=== PATIENT | female | born 1975 | race Caucasian/White ===

== ENCOUNTER 2022-09-03 15:59 | Inpatient (IN) | payer MEDICAID ==
[~2022-09-03] VITALS: Ht 162.6 cm; Wt 131.5 kg
[2022-09-03 16:39] LABS: HEMATOCRIT 33.7 % (31.2-41.9); MEAN CORPUSCULAR HEMOGLOBIN 28.1 uug (24.7-32.8); MEAN CORPUSCULAR VOLUME 89.7 fL (75.5-95.3); PLATELET COUNT (AUTO) 144 K/uL (179-408)
[2022-09-03] MEDS ORDERED: AMIN30LI2 PO (16:40)
[2022-09-03] MEDS ORDERED: ACET-2154 PO (16:40)
[2022-09-03] MEDS ORDERED: PREG100C PO (16:40)
[2022-09-03] MEDS ORDERED: BUDE0.253 IH (16:40)
[2022-09-03] MEDS ORDERED: PANT40TA2 PO (16:40)
[2022-09-03] MEDS ORDERED: INSU100I26 SQ (16:40)
[2022-09-03] MEDS ORDERED: BUSP5TAB3 PO (16:40)
[2022-09-03] MEDS ORDERED: ASCO500C6 PO (16:40)
[2022-09-03] MEDS ORDERED: GLUC1KIT IM (16:40)
[2022-09-03] MEDS ORDERED: NALO4SPR BNOSTRILS (16:40)
[2022-09-03] MEDS ORDERED: OXYC15TA2 PO (16:40)
[2022-09-03] MEDS ORDERED: ZINC220C6 PO (16:40)
[2022-09-03] MEDS ORDERED: ARGI1POW13 PO (16:40)
[2022-09-03] MEDS ORDERED: IPRA0.2S48 NEB (16:40)
[2022-09-03] MEDS ORDERED: OXYC10TA49 PO (16:40)
[2022-09-03] MEDS ORDERED: INSU100I47 SQ (16:40)
[2022-09-03] MEDS ORDERED: FERR-56 PO (16:40)
[2022-09-03] MEDS ORDERED: ENOX40DI SQ (16:40)
[2022-09-03] MEDS ORDERED: ONDA4TAB5 PO (16:40)
[2022-09-03] MEDS ORDERED: ESCI20TA PO (16:40)
[2022-09-03] MEDS ORDERED: MULT-213 PO (16:40)
[2022-09-03] MEDS ORDERED: ASPI81TA31 PO (16:40)
[2022-09-03] MEDS ORDERED: FURO-151 PO (16:40)
[2022-09-03] MEDS ORDERED: LACT1CAP61 PO (16:40)
[2022-09-03] MEDS ORDERED: ATOR10TA PO (16:40)
[2022-09-03] MEDS ORDERED: ALLO100T PO (16:40)
[2022-09-03] MEDS ORDERED: MELA3CAP2 PO (16:40)
[2022-09-03 16:49] LABS: ABG BASE EXCESS 9.3 mmol/L; ABG HCO3 38.2 mmol/L; ABG PCO2 79.2 mmHg (35.0-45.0); ABG PH 7.301 (7.350-7.450); ABG PO2 119.7 mmHg (75.0-100.0); ABG SITE RIGHT RADIAL; ABG TOTAL HEMOGLOBIN 11.2 G/dL (12.0-16.0); COHb 0.9 % (0.5-1.5); MetHb 0.3 % (0.0-1.5); O2Hb 97.2 % (94.0-97.0)
[2022-09-03 16:51] LABS: CARBON DIOXIDE 35 mmol/L (21-32); CHLORIDE 101 mmol/L (98-107); CREATININE 1.3 mg/dL (0.6-1.3); POTASSIUM 4.6 mmol/L (3.5-5.1); UREA NITROGEN, BLOOD 25 mg/dL (7-18)
--- NOTE | 2022-09-03 16:58 | NUR ---
Pt out of ER for CT/Xray.
[2022-09-03 16:59] LABS: ACETAMINOPHEN < 10.0 ug/mL (10-30); ALANINE AMINOTRANSFERASE 42 U/L (14-59); ALKALINE PHOSPHATASE 335 U/L (50-136); ASPARTATE AMINOTRANSFERASE 54 U/L (15-37); BILIRUBIN,DIRECT 0.2 mg/dL (0.0-0.2); BILIRUBIN,TOTAL 0.6 mg/dL (0.2-1.0); TOTAL PROTEIN, SERUM 7.5 g/dL (6.4-8.2)
--- NOTE | 2022-09-03 17:03 | NUR ---
Note joann in EDM - 09/03/22 at 1748 by TOMMY Pt placed on BIPAP by RT. Setting for BIPAP. 28/06, RR24, FIO2 85%.
[2022-09-03] MEDS ORDERED: CEFTRIAXONE 1 G in IV DEXTROSE 5% 50 ML IV ONE (17:15)
[2022-09-03] MEDS ORDERED: AZITHROMYCIN IV 500 MG in IV DEXTROSE 5% 250 ML IV ONE (17:15)
[2022-09-03] MEDS ORDERED: FUROSEMIDE 40 MG/4 ML VIAL IV ONE ×2 (17:15→18:30)
--- NOTE | 2022-09-03 17:25 | NUR ---
Pt placed on BIPAP by RT. Settings are 19/5, RR24, FIO2 at 85%. Pt is tolorating well at this time.
[2022-09-03 17:26] LABS: THYROID STIMULATING HORMONE 4.633 mIU/mL (0.358-3.740)
[2022-09-03 17:28] LABS: *BILIRUBIN,URIN NEGATIVE (NEGATIVE); *BLOOD, URINE 1+ (NEGATIVE); *CLARITY,URINE CLEAR (CLEAR); *COLOR,URINE YELLOW (YELLOW); *KETONES,URINE NEGATIVE (NEGATIVE); LEUKOCYTE ESTERASE ,URINE NEGATIVE (NEGATIVE); NITRITE, URINE NEGATIVE (NEGATIVE); PH,URINE 6.5 (5.0-8.0); UGLUCOSE TRACE (NEGATIVE)
[2022-09-03] MEDS ORDERED: FUROSEMIDE 40 MG/4 ML VIAL ONE ×2 (17:31→18:19)
[2022-09-03] MEDS ORDERED: CEFTRIAXONE /D5W 50ML IVPB **ER PYXIS IV ONE (17:31)
[2022-09-03] MEDS ORDERED: AZITHROMYCIN 500MG/ D5W 250ML IVPB **ER PYXIS ONLY IV ONE (17:31)
[2022-09-03 17:38] LABS: *AMPHETAMINE, URINE NEGATIVE (NEGATIVE); *CANNABINOID, URINE NEGATIVE (NEGATIVE); *COCCAINE, URINE NEGATIVE (NEGATIVE); *PHENCYCLIDINE SCREEN,URINE NEGATIVE (NEGATIVE)
[2022-09-03 17:47] LABS: BACTERIA,URINE FEW /HPF (NONE SEEN); SQUAMOUS EPITHELIAL CELL,UR FEW /HPF (NONE SEEN); WBC,URINE 0-3 /HPF (0-3)
[2022-09-03 17:49] LABS: COARSE GRANULAR CASTS,URINE 0-3 /LPF
[2022-09-03 18:07] LABS: ABG BASE EXCESS 11.3 mmol/L; ABG HCO3 39.8 mmol/L; ABG PCO2 77.4 mmHg (35.0-45.0); ABG PH 7.329 (7.350-7.450); ABG PO2 107.7 mmHg (75.0-100.0); ABG SITE RIGHT RADIAL; COHb 0.4 % (0.5-1.5); MetHb 0.5 % (0.0-1.5); O2Hb 96.8 % (94.0-97.0); VENT MODE BIPAP
[2022-09-03] MEDS ORDERED: NITROGLYCERIN OINT 1 GM PACKET TP ONE ×2 (18:19→18:30)
[2022-09-03] MEDS ORDERED: ENALAPRILAT DIHYDRATE 1.25 MG/1 ML VIAL IV ONE (18:30)
[2022-09-03] MEDS ORDERED: ACETAMINOPHEN 650 MG SUPP.RECT RC PRN (20:15)
[2022-09-03] MEDS ORDERED: ONDANSETRON 4 MG/2 ML VIAL IV PRN (20:15)
[2022-09-03] MEDS ORDERED: IV D5/ 0.9% NACL 1,000 ML IV PRN (20:15)
--- NOTE | 2022-09-03 22:00 | NUR ---
Vascular Surgeon at bedside for cental line insertion. Triple CVC established on right IJ. Saline locked.
[2022-09-03] MEDS ORDERED: PANTOPRAZOLE SODIUM 40 MG VIAL ONE (22:11)
[2022-09-03] MEDS ORDERED: HYDROMORPHONE 1 MG/1 ML DISP.SYRIN IV PRN ×2 (22:15)
[2022-09-03] MEDS ORDERED: NOREPINEPHRINE BITARTRATE 8 MG in IV NORMAL SALINE 250 ML IV ONE (22:15)
--- NOTE | 2022-09-03 22:21 | NUR ---
Patient transported to CCU in stable condition on a portable cardiac technologist. Accompanied by another RN, and RT.
--- NOTE | 2022-09-03 22:35 | NUR ---
Pt is noted on the unit as she is new admit from the ER with Diagnose off ALOC, SOB , HYPOXIA and RESPIRATORY FAILURE with extensa history noted. Sinus Rhythm on the Tele monitor, Crackles Lungs sound with BiPAP therapy in progress, skin dry, warm with skin areas noted but unable to take pictures now as camera is broken and Blue Line Trimmer is made aware. Pt is also noted with Reyes Cath and RIJ Central Line. Pt care continue as she will be started on IVF D5NS at 70ML/HR while monitor closely.
[2022-09-03 23:00] VITALS: BP 103/38; TEMP 98.3; O2SAT 100
[2022-09-03 23:30] VITALS: BP 98/45; O2SAT 100
[2022-09-03] MEDS ORDERED: NOREPINEPHRINE BITARTRATE 4 MG/4 ML VIAL IV ONE (23:39)
[2022-09-03] MEDS ORDERED: VANCOMYCIN IV 2,000 MG in IV DEXTROSE 5% 500 ML IV ONE (23:45)
[2022-09-04] VITALS (60 sets, daily range): BP systolic 62–171; BP diastolic 23–114; TEMP 97.9–99.6; O2SAT 94–100
[2022-09-04] MEDS ORDERED: MEROPENEM 0.5 G in IV NORMAL SALINE 50 ML IV ONE ×2
--- NOTE | 2022-09-04 00:15 | NUR ---
Pt is resting with BiPAP therapy in progress as she is started on Levo gtt after DR. CROUCH around on Pt with sister at bedside. Pt care continue with IVF D5NS AT 70ML/HR and Antibiotic therapy in progress while monitor closely and reposition for comfort.
--- NOTE | 2022-09-04 00:19 | NUR ---
Pt received in CCU1 Pt aox4 able to verbalize her needs. Pt provided with late dinner tray latest BS 311 Pt states that she gets insulin Lantus 100 units every 12 hrs. Pt on NC 4 litters sat 97%. Pt on Levophed 32 mg/250 cc NS. AT 0.08 MCG/KG/MIN. continue monitoring SBP. F/C to gravity QS urine output. Pt on Lasix 60 mg IVP. 2d echo done with EF 65% and BNP 404 WT 121 kg. Pt able to turn side to side for sacral wound care and perineal area rash care with lotrimin lotion. 0000 glucose level 500 call Mannie Sheehan NP who gave order to resume Lantus insulin 100 units BID. Continue monitoring condition. Levophed titrate down to 0.06 MCG/KG/MIN. Pt agrees to put BIPAP setting 18/5 BUR 24 fio2 50% Pt comfortable resting
--- NOTE | 2022-09-04 00:30 | NUR ---
Pt care continue as Levo gtt is been discontinue for now. Pt care continue.
--- NOTE | 2022-09-04 04:33 | NUR ---
Pt remain full code with BiPAP therapy in progress, Sinus Rhythm on the Tele monitor as AM and wound care done. Pt care continue with Reyes Cath and RIJ Central Line in place as IVF D5NS infusing at 70ML/HR while monitor Blood Pressure been monitor closely.
[2022-09-04 04:54] LABS: HEMATOCRIT 32.7 % (31.2-41.9); MEAN CORPUSCULAR HEMOGLOBIN 28.2 uug (24.7-32.8); MEAN CORPUSCULAR VOLUME 87.6 fL (75.5-95.3); PLATELET COUNT (AUTO) 161 K/uL (179-408)
[2022-09-04 05:19] LABS: BILIRUBIN,TOTAL 0.7 mg/dL (0.2-1.0); CREATININE 1.5 mg/dL (0.6-1.3); MAGNESIUM 1.8 mg/dL (1.8-2.4); PHOSPHOROUS 3.6 mg/dL (2.5-4.9); POTASSIUM 4.6 mmol/L (3.5-5.1); TOTAL PROTEIN, SERUM 7.5 g/dL (6.4-8.2)
[2022-09-04 05:39] LABS: ABG BASE EXCESS 9.5 mmol/L; ABG HCO3 36.7 mmol/L; ABG PCO2 63.5 mmHg (35.0-45.0); ABG PO2 147.3 mmHg (75.0-100.0); ABG SITE LEFT RADIAL; COHb 0.2 % (0.5-1.5); MetHb 0.4 % (0.0-1.5); O2Hb 98.4 % (94.0-97.0); VENT MODE BIPAP 18/5
[2022-09-04 05:42] LABS: THYROID STIMULATING HORMONE 1.139 mIU/mL (0.358-3.740)
[2022-09-04] MEDS ORDERED: MEROPENEM 0.5 G in IV NORMAL SALINE 50 ML IV SCH (06:00)
--- NOTE | 2022-09-04 07:00 | NUR ---
Received pt. On BIPAP /, Rate of 24 and 65% FIO2 saturation within desired limits, no tachypnea, or SOB reported or noted. As reported pt. off Levophed. as sbp is within desired limits at this time, on NSR. smith to gravity clear some sediments noted. TLC RIJ. Over all skin with sacral severe excoriation at skin folds, under the breast and abdominal folds redness noted. Patient on her period at this time. Will continue to monitor.
[2022-09-04] MEDS ORDERED: DEXTROSE 50% 50 ML DISP.SYRIN IV PRN (07:15)
[2022-09-04] MEDS ORDERED: REMEDY ESSENTIAL ZINC PASTE 113 GM TOP PRN (07:15)
--- NOTE | 2022-09-04 07:20 | NUR ---
Pt care [id number] as report is given to the AM receiving nurse.
[2022-09-04] MEDS ORDERED: ACETAzolamide SODIUM 500 MG VIAL IV ONE (07:45)
[2022-09-04] MEDS: BLOOD SUGAR DIAGNOSTIC 1 EACH STRIP VI SCH ×4 (07:48→23:45)
--- NOTE | 2022-09-04 08:00 | NUR ---
Cardiology services Dr. Cornell in the unit to examine pt. report given see order hx.
[2022-09-04] MEDS: PANTOPRAZOLE SODIUM 40 MG VIAL IV SCH (08:03)
[2022-09-04] MEDS: FUROSEMIDE 40 MG/4 ML VIAL IV SCH ×2 (08:03→20:14)
--- NOTE | 2022-09-04 08:05 | NUR ---
Patient taken off BIPAP at this time and left on RA saturation above 95%, pt. tolerating it well.
[2022-09-04] MEDS ORDERED: NOREPINEPHRINE BITARTRATE 32 MG in IV NORMAL SALINE 218 ML IV PRN (08:30)
--- NOTE | 2022-09-04 08:35 | NUR ---
Pulmonary services, Dr. Munoz in the unit to follow examine pt. report given see order hx.
[2022-09-04] MEDS ORDERED: IPRATROPIUM BROMIDE 0.5 MG/2.5 ML NEBU NEB PRN (08:45)
[2022-09-04] MEDS ORDERED: ALBUTEROL SULFATE 2.5 MG/3 ML NEBU NEB PRN (08:45)
--- NOTE | 2022-09-04 08:45 | NUR ---
Nephrology services, Rocio Ambrose in the unit to examine pt. no new orders received.
[2022-09-04] MEDS ORDERED: FUROSEMIDE 40 MG/4 ML VIAL IV SCH (09:00)
[2022-09-04] MEDS: MEROPENEM 0.5 G in IV NORMAL SALINE 50 ML IV SCH ×2 (09:15→17:26)
--- NOTE | 2022-09-04 09:42 | NUR ---
WOUND CARE CONSULT: PT PRESENTS WITH REDNESS TO BILATERAL LOWER LEGS (PT STATES IS CHRONIC), SACRAL STAGE 4 PRESSURE ULCER AND RASHES TO AXILLAE, BREASTFOLDS, BUTTOCKS, PERINEUM, GLUTEAL FOLDS AND THIGHS, ALL PRESENT ON ADMISSION. VAGINAL BLEEDING NOTED. DEFER TO PMD FOR VAGINAL BLEEDING. DR ESCAMILLA CALLED FOR SURGICAL CONSULT. DISCUSSED SKIN PROTECTION AND WOUND CARE RECOMMENDATIONS WITH NURSING STAFF. MD IN AGREEMENT WITH PLAN OF CARE. BARIATRIC AIR BED IS ON ORDER. Addendum: 09/04/22 at 0944 by LAI GRIFFIN RN Amended: Links added.
[2022-09-04] MEDS: HEPARIN SODIUM,PORCINE 5,000 UNITS/ML VIAL SQ SCH ×2 (09:46→20:16)
--- NOTE | 2022-09-04 09:47 | NUR ---
Heparin hold due to Vaginal bleeding/ as ordered by .
[2022-09-04] MEDS: CLOTRIMAZOLE/BETAMET DIPROP CREAM 15 GM TUBE TOP SCH ×2 (11:42→21:56)
[2022-09-04] MEDS: MEDIHONEY= THERAHONEY 1.5 OZ TUBE TOP SCH (11:42)
[2022-09-04] MEDS: VANCOMYCIN IV 1,250 MG in IV DEXTROSE 5% 250 ML IV SCH (11:42)
--- NOTE | 2022-09-04 11:56 | NUR ---
Bed-side swallow done by Rogelio at bedside pt. swallow ok now off BIPAP.
[2022-09-04] MEDS ORDERED: VANCOMYCIN IV 750 MG in IV DEXTROSE 5% 250 ML IV SCH (12:00)
[2022-09-04] MEDS ORDERED: ACETAMINOPHEN 325 MG TABLET PO PRN (12:00)
--- NOTE | 2022-09-04 12:00 | NUR ---
Attending in the unit to examine pt. report given see orders. was informed that pt. is having vaginal bleeding. Orders to continue monitoring received.
[2022-09-04] MEDS: INSULIN REGULAR, HUMAN 300 UNIT/3 ML VIAL SQ PRN ×3 (12:07→23:49)
[2022-09-04] MEDS ORDERED: NALOXONE HCL 0.4 MG/ML AMPUL IV PRN (12:45)
[2022-09-04] MEDS ORDERED: OXYCODONE HCL 10 MG TAB.SR.12H PO PRN (12:45)
[2022-09-04] MEDS: OXYCODONE HCL 5 MG TABLET PO PRN ×2 (14:14→19:53)
[2022-09-04] MEDS ORDERED: INSU100V11 SQ (15:53)
[2022-09-04] MEDS ORDERED: PROT30LI PO (16:10)
--- NOTE | 2022-09-04 18:00 | NUR ---
informed that a nursing bedside swallow eval done and patient is swallowing ok with no s/s of aspiration orders to [facility] diet received.
[2022-09-04] MEDS ORDERED: HYDROMORPHONE 1 MG/1 ML DISP.SYRIN IV ONE (22:15)
[2022-09-05] VITALS (35 sets, daily range): BP systolic 91–156; BP diastolic 29–106; TEMP 98.2–99; O2SAT 95–100
[2022-09-05] MEDS: MEROPENEM 0.5 G in IV NORMAL SALINE 50 ML IV SCH ×3 (00:04→17:17)
[2022-09-05] MEDS: FUROSEMIDE 40 MG/4 ML VIAL IV SCH ×3 (01:00→21:00)
[2022-09-05] MEDS: VANCOMYCIN IV 1,250 MG in IV DEXTROSE 5% 250 ML IV SCH (04:17)
[2022-09-05] MEDS: OXYCODONE HCL 5 MG TABLET PO PRN ×3 (04:25→17:29)
[2022-09-05 04:56] LABS: HEMATOCRIT 26.6 % (31.2-41.9); MEAN CORPUSCULAR HEMOGLOBIN 28.5 uug (24.7-32.8); MEAN CORPUSCULAR VOLUME 87.2 fL (75.5-95.3); PLATELET COUNT (AUTO) 121 K/uL (179-408)
[2022-09-05 05:10] LABS: CREATININE 1.4 mg/dL (0.6-1.3); MAGNESIUM 1.9 mg/dL (1.8-2.4); PHOSPHOROUS 3.1 mg/dL (2.5-4.9)
[2022-09-05] MEDS: BLOOD SUGAR DIAGNOSTIC 1 EACH STRIP VI SCH ×4 (05:28→21:21)
[2022-09-05] MEDS: INSULIN REGULAR, HUMAN 300 UNIT/3 ML VIAL SQ PRN ×4 (05:39→17:25)
[2022-09-05 06:07] LABS: ABG BASE EXCESS 11.1 mmol/L; ABG HCO3 37.8 mmol/L; ABG PCO2 64.2 mmHg (35.0-45.0); ABG PH 7.388 (7.350-7.450); ABG PO2 83.4 mmHg (75.0-100.0); ABG SITE LEFT RADIAL; ABG TOTAL HEMOGLOBIN 9.4 G/dL (12.0-16.0); MetHb 0.3 % (0.0-1.5); O2Hb 95.3 % (94.0-97.0); VENT MODE Nasal Cannula
--- NOTE | 2022-09-05 07:00 | NUR ---
Received pt. AAOx4. Off BIPAP kelly NC 4Liters with saturation above 95% NO tachypnea or sob reported or noted. On traffic monitor specialist NSR with sbp maintained above 90's with no need of vasopressor, as reported off since 399. smith to gravity. IV line patent. Will continue with care plan.
--- NOTE | 2022-09-05 07:01 | NUR ---
Pt awakes denies any pain after pain meds given. Glucose leve; 432 physician chief of pathology to Aguila MARQUEZ. Pt tolerates well BIPAP during the night and placed on 4 LPM N/C. Pt denies any SOB am care done. Endorse care to incoming nurse.
--- NOTE | 2022-09-05 07:45 | NUR ---
Cardiology services, Dr. Cornell in the unit to examine pt. report given. See order hx.
[2022-09-05] MEDS: PANTOPRAZOLE SODIUM 40 MG VIAL IV SCH (08:23)
[2022-09-05] MEDS: HEPARIN SODIUM,PORCINE 5,000 UNITS/ML VIAL SQ SCH ×2 (08:23→21:01)
[2022-09-05] MEDS: CLOTRIMAZOLE/BETAMET DIPROP CREAM 15 GM TUBE TOP SCH ×2 (08:25→21:03)
[2022-09-05] MEDS: INSULIN GLARGINE,HUM 300 UNITS/3 ML CARTRIDGE SQ SCH ×2 (08:34→21:20)
--- NOTE | 2022-09-05 08:45 | NUR ---
First Aid Officer in to follow up on pt.
[2022-09-05] MEDS: MEDIHONEY= THERAHONEY 1.5 OZ TUBE TOP SCH (08:53)
[2022-09-05] MEDS ORDERED: INSULIN GLARGINE,HUM 300 UNITS/3 ML CARTRIDGE SQ SCH (09:00)
--- NOTE | 2022-09-05 09:03 | NUR ---
Pulmonary services Dr. Munoz in to follow up on pt. report give see orders.
--- NOTE | 2022-09-05 11:27 | NUR ---
For a BS of [address] Josse Wong informed awaiting response.
[2022-09-05] MEDS ORDERED: INSULIN REGULAR, HUMAN 300 UNITS/3 ML VIAL SQ PRN (12:30)
[2022-09-05] MEDS ORDERED: DEXTROSE 50% 50 ML DISP.SYRIN IV PRN (12:30)
[2022-09-05] MEDS: PROTEIN SUPPLEMENT (PROSTAT) 30 ML LIQUID PO SCH (17:16)
--- NOTE | 2022-09-05 21:30 | NUR ---
PT TRANSFERRED FROM CCU TO TELE. AOX4. SR ON TELE. ON 4LPM VIA NC SATING AT 95%. IV SITE ON RIGHT IJ TLC INTACT AND PATENT. MIRANDA CATHETER INTACT AND DRAINING VIA GRAVITY. HAS SACRAL WOUND STAGE 4 ULCER AND RASHES ON PERINEUM, BACK, GLUTEAL FOLDS, BILATERAL ARMPITS, BREAST FOLDS, AND THIGHS. LOTRISONE APPLIED TO AFFECTED AREAS. BLOOD SUGAR OF 286. LANTUS GIVEN ORDERED. ORIENTED PT TO HOSPITAL ROOM. KEPT CLEAN AND DRY. ALL NEEDS ATTENDED. CALL LIGHT WITHIN REACH. WILL CONTINUE TO MONITOR.
[2022-09-06] MEDS: MEROPENEM 0.5 G in IV NORMAL SALINE 50 ML IV SCH ×3 (00:01→16:41)
[2022-09-06 00:41] VITALS: BP 105/48; TEMP 97.5; O2SAT 100
[2022-09-06] MEDS: OXYCODONE HCL 5 MG TABLET PO PRN ×3 (03:46→18:46)
[2022-09-06 04:00] VITALS: BP 126/48; TEMP 98.6; O2SAT 94
[2022-09-06] MEDS: BLOOD SUGAR DIAGNOSTIC 1 EACH STRIP VI SCH ×4 (06:49→21:03)
[2022-09-06] MEDS: PANTOPRAZOLE SODIUM 40 MG TABLET.DR PO SCH (07:01)
[2022-09-06 07:07] LABS: HEMATOCRIT 27.4 % (31.2-41.9); MEAN CORPUSCULAR HEMOGLOBIN 28.7 uug (24.7-32.8); MEAN CORPUSCULAR VOLUME 86.7 fL (75.5-95.3); PLATELET COUNT (AUTO) 115 K/uL (179-408)
[2022-09-06 07:23] LABS: CREATININE 1.1 mg/dL (0.6-1.3); MAGNESIUM 1.9 mg/dL (1.8-2.4); PHOSPHOROUS 3.7 mg/dL (2.5-4.9); POTASSIUM 3.9 mmol/L (3.5-5.1)
[2022-09-06] MEDS ORDERED: FUROSEMIDE 40 MG/4 ML VIAL IV ONE (08:00)
[2022-09-06] MEDS ORDERED: ACETAzolamide SODIUM 500 MG VIAL IV ONE (08:00)
[2022-09-06] MEDS: CLOTRIMAZOLE/BETAMET DIPROP CREAM 15 GM TUBE TOP SCH ×2 (09:00→21:14)
[2022-09-06] MEDS: PROTEIN SUPPLEMENT (PROSTAT) 30 ML LIQUID PO SCH ×2 (09:00→16:41)
[2022-09-06] MEDS: MEDIHONEY= THERAHONEY 1.5 OZ TUBE TOP SCH (09:00)
[2022-09-06] MEDS: INSULIN GLARGINE,HUM 300 UNITS/3 ML CARTRIDGE SQ SCH ×2 (10:16→21:07)
[2022-09-06] MEDS: HEPARIN SODIUM,PORCINE 5,000 UNITS/ML VIAL SQ SCH ×2 (10:18→21:11)
[2022-09-06 12:00] VITALS: BP 112/58; TEMP 98.4; O2SAT 95
[2022-09-06 16:05] VITALS: BP 113/43; TEMP 98.2; O2SAT 93
[2022-09-06 18:23] VITALS: O2SAT 98
[2022-09-06] MEDS: INSULIN REGULAR, HUMAN 300 UNIT/3 ML VIAL SQ PRN (18:41)
[2022-09-06 20:00] VITALS: BP 120/45; TEMP 98; O2SAT 95
--- NOTE | 2022-09-06 20:02 | NUR ---
Received the patient from the off-going nurse, A/O X4 on telemetry monitoring. Patient observed with BiPAP at the bedside, on O2 @ 4LPM, seen by the Plant Operator/Shift Supervisor and rate reduced to 2.5 LPM via N/C. Patient has (RT) IJ, triple lumen Catheter in place, site WNL. Patient medicated via TLC. Patient C/O Pain/ medicated as pert orders (see eMAR). Report given to the on-coming nurse. Patient left stable on the bed, in the lowest position, wheels locked, call mcqueen within reach and Airborne Isolation in place..
[2022-09-07] VITALS: BP 102/46; TEMP 98.5; O2SAT 98
[2022-09-07] MEDS: MEROPENEM 0.5 G in IV NORMAL SALINE 50 ML IV SCH ×2 (01:03→09:56)
[2022-09-07] MEDS: OXYCODONE HCL 5 MG TABLET PO PRN ×2 (01:12→10:48)
[2022-09-07 04:00] VITALS: BP 131/54; TEMP 98.7; O2SAT 96
[2022-09-07 06:07] LABS: ABG BASE EXCESS 12.6 mmol/L; ABG HCO3 39.4 mmol/L; ABG PCO2 63.7 mmHg (35.0-45.0); ABG PH 7.409 (7.350-7.450); ABG PO2 73.8 mmHg (75.0-100.0); ABG SITE RIGHT RADIAL; ABG TOTAL HEMOGLOBIN 10.7 G/dL (12.0-16.0); COHb 0.5 % (0.5-1.5); MetHb 0.1 % (0.0-1.5); O2Hb 93.5 % (94.0-97.0); VENT MODE Nasal Cannula
[2022-09-07] MEDS: BLOOD SUGAR DIAGNOSTIC 1 EACH STRIP VI SCH ×2 (06:44→11:30)
[2022-09-07] MEDS: PANTOPRAZOLE SODIUM 40 MG TABLET.DR PO SCH (06:44)
[2022-09-07 07:06] LABS: MEAN CORPUSCULAR HEMOGLOBIN 28.3 uug (24.7-32.8); MEAN CORPUSCULAR VOLUME 86.7 fL (75.5-95.3); PLATELET COUNT (AUTO) 125 K/uL (179-408)
[2022-09-07 07:28] LABS: CREATININE 1.1 mg/dL (0.6-1.3); MAGNESIUM 2.4 mg/dL (1.8-2.4); PHOSPHOROUS 4.4 mg/dL (2.5-4.9); POTASSIUM 3.9 mmol/L (3.5-5.1)
[2022-09-07] MEDS ORDERED: ACETAzolamide SODIUM 500 MG VIAL IV ONE (08:15)
[2022-09-07] MEDS ORDERED: FUROSEMIDE 40 MG/4 ML VIAL IV ONE (08:15)
[2022-09-07] MEDS: INSULIN GLARGINE,HUM 300 UNITS/3 ML CARTRIDGE SQ SCH (09:19)
[2022-09-07] MEDS: PROTEIN SUPPLEMENT (PROSTAT) 30 ML LIQUID PO SCH (09:21)
[2022-09-07] MEDS: HEPARIN SODIUM,PORCINE 5,000 UNITS/ML VIAL SQ SCH (09:21)
[2022-09-07] MEDS: MEDIHONEY= THERAHONEY 1.5 OZ TUBE TOP SCH (09:24)
[2022-09-07] MEDS: CLOTRIMAZOLE/BETAMET DIPROP CREAM 15 GM TUBE TOP SCH (09:25)
[2022-09-07 11:38] VITALS: BP 121/40; TEMP 97.6; O2SAT 94
[2022-09-07] MEDS ORDERED: FLEET ENEMA 133 ML BOTTLE RC ONE ×2 (13:15→15:00)
== END 2022-09-07 15:55 | DRG 710 ==
LOC: ER 15:59 → CCU 19:22 → TELE3 09-05 18:54
PROVIDERS: ADMIT Internal Medicine; ATTEND Internal Medicine
PROC: 02HV33Z Insertion of Infusion Device into Superior Vena Cava, Percutaneous Approach (ICD-10-PCS; principal; 2022-09-03)
PROC: 5A09357 Assistance with Respiratory Ventilation, Less than 24 Consecutive Hours, Continuous Positive Airway Pressure (ICD-10-PCS; principal; 2022-09-03)
PROC: B548ZZA Ultrasonography of Superior Vena Cava, Guidance (ICD-10-PCS; principal; 2022-09-03)
PROC: 0KBN3ZZ Excision of Right Hip Muscle, Percutaneous Approach (ICD-10-PCS; 2022-09-07)
PROC: 0KBP3ZZ Excision of Left Hip Muscle, Percutaneous Approach (ICD-10-PCS; 2022-09-07)
DX: A41.9 Sepsis, unspecified organism (principal); J96.21 Acute and chronic respiratory failure with hypoxia; N17.0 Acute kidney failure with tubular necrosis; R65.21 Severe sepsis with septic shock; J69.0 Pneumonitis due to inhalation of food and vomit; I27.20 Pulmonary hypertension, unspecified; I50.33 Acute on chronic diastolic (congestive) heart failure; D68.59 Other primary thrombophilia; L89.154 Pressure ulcer of sacral region, stage 4; E66.2 Morbid (severe) obesity with alveolar hypoventilation; J18.9 Pneumonia, unspecified organism; E43 Unspecified severe protein-calorie malnutrition; I13.0 Hypertensive heart and chronic kidney disease with heart failure and stage 1 through stage 4 chronic kidney disease, or unspecified chronic kidney disease; E11.22 Type 2 diabetes mellitus with diabetic chronic kidney disease; Z68.42 Body mass index [BMI] 45.0-49.9, adult; G89.4 Chronic pain syndrome; Z79.891 Long term (current) use of opiate analgesic; J96.22 Acute and chronic respiratory failure with hypercapnia; N18.9 Chronic kidney disease, unspecified; R65.20 Severe sepsis without septic shock; E11.65 Type 2 diabetes mellitus with hyperglycemia; E11.42 Type 2 diabetes mellitus with diabetic polyneuropathy; M79.7 Fibromyalgia; Z79.899 Other long term (current) drug therapy; M48.00 Spinal stenosis, site unspecified; M10.9 Gout, unspecified; N93.9 Abnormal uterine and vaginal bleeding, unspecified; F32.A Depression, unspecified; F41.9 Anxiety disorder, unspecified; L40.9 Psoriasis, unspecified; Z20.822 Contact with and (suspected) exposure to COVID-19; Z86.16 Personal history of COVID-19; Z87.01 Personal history of pneumonia (recurrent); Z86.74 Personal history of sudden cardiac arrest; Z85.41 Personal history of malignant neoplasm of cervix uteri; Z90.710 Acquired absence of both cervix and uterus; Z91.148 Patient's other noncompliance with medication regimen for other reason; Z90.49 Acquired absence of other specified parts of digestive tract; Z87.891 Personal history of nicotine dependence; Z74.09 Other reduced mobility; Z84.1 Family history of disorders of kidney and ureter; Z83.3 Family history of diabetes mellitus; Z83.2 Family history of diseases of the blood and blood-forming organs and certain disorders involving the immune mechanism; Z79.4 Long term (current) use of insulin; Z79.51 Long term (current) use of inhaled steroids; E78.5 Hyperlipidemia, unspecified; K74.60 Unspecified cirrhosis of liver; K76.0 Fatty (change of) liver, not elsewhere classified; L30.4 Erythema intertrigo; K21.9 Gastro-esophageal reflux disease without esophagitis; J44.0 Chronic obstructive pulmonary disease with (acute) lower respiratory infection
CPT/HCPCS: 36415; 36600; 70450; 71045; 82785; 82803; 83605; 83735; 84100; 84443; 84484; 85025; 85730; 87040; 93005; 93307; 94640; 94660; 94760; A4663; A6209; A6213; C9113; G0378; G0480; J0456; J0696; J1120; J1170; J1644; J1815; J1940; J2185; J2405; J3370; J3490; J3590; J7040; J7042; J7050; J7060